=== PATIENT | female | born 1990 | race African-American/Black ===

== ENCOUNTER 2023-06-23 18:33 | Emergency (ER) | payer OTHER ==
[~2023-06-23] VITALS: Ht 162.6 cm; Wt 64.1 kg
[2023-06-23 19:25] VITALS: BP 123/78; PULSE 66; RESP 16; O2SAT 100
[2023-06-24] MEDS ORDERED: BACL10TA PO (00:39)
[2023-06-24] MEDS ORDERED: IBUP1TAB5 PO (00:39)
[2023-06-24] MEDS ORDERED: HYDROcodone-ACET 5/325MG TAB PO ONE (00:45)
[2023-06-24] MEDS ORDERED: KETOROLAC TROMETH 60MG/2ML VIAL IM ONE (00:45)
== END 2023-06-24 01:32 | disposition home or self-care (01) ==
LOC: ER 18:33
DX: S13.8XXA Sprain of joints and ligaments of other parts of neck, initial encounter (principal); S33.5XXA Sprain of ligaments of lumbar spine, initial encounter; S00.03XA Contusion of scalp, initial encounter; N83.291 Other ovarian cyst, right side; Z79.1 Long term (current) use of non-steroidal anti-inflammatories (NSAID); Z79.899 Other long term (current) drug therapy; W01.0XXA Fall on same level from slipping, tripping and stumbling without subsequent striking against object, initial encounter; Y93.89 Activity, other specified; Y92.89 Other specified places as the place of occurrence of the external cause; Y99.8 Other external cause status
CPT/HCPCS: 70450; 72125; 72131; 76856; 96372; 99285; J1885